=== PATIENT | male | born 1955 | race Caucasian/White ===

== ENCOUNTER 2021-05-17 18:09 | Emergency (ER) | payer OTHER ==
[~2021-05-17] VITALS: Ht 157.5 cm; Wt 54.4 kg
== END 2021-05-17 21:59 | disposition home or self-care (01) ==
LOC: ER 18:09
DX: G45.9 Transient cerebral ischemic attack, unspecified (principal)

== ENCOUNTER 2022-02-23 14:55 | Emergency (ER) | payer OTHER ==
[~2022-02-23] VITALS: Ht 162.6 cm; Wt 61.2 kg
== END 2022-02-23 20:39 | disposition home or self-care (01) ==
LOC: ER 14:55
DX: R10.9 Unspecified abdominal pain (principal)